=== PATIENT | male | born 1980 | race Caucasian/White ===

== ENCOUNTER 2018-05-25 08:53 | Emergency (ER) | payer OTHER ==
[2018-05-25 08:59] VITALS: BP 149/93
[2018-05-25] MEDS ORDERED: TDAP ADULT 0.5 ML INJ (BOOSTRIX) IM ONE (09:14)
[2018-05-25] MEDS ORDERED: CEPHALEXIN 500 MG CAP PO ONE (09:14)
--- NOTE | 2018-05-25 09:16 | EDPHY ---
H & P Stated Complaint: R pinky lac Time Seen by Provider: 05/25/18 09:06 HPI/ROS: CHIEF COMPLAINT: Right finger laceration HISTORY OF PRESENT ILLNESS: 38-year-old male right-hand dominant with out-of- date tetanus sustained accidental laceration to his right pinky digit palmar aspect PIP joint shortly prior to arrival when he was reaching to his backpack and accidentally lacerated himself. Unable to flex at the PIP joint. PRIMARY CARE PROVIDER: REVIEW OF SYSTEMS: 10 systems reviewed and are negative with exception of illness mentioned in the history of present illness PHYSICAL EXAM (Prior to examination, patient consented to physical exam, hands were washed and my usual and customary physical exam procedures followed) 1) GENERAL: Well-developed, well-nourished, alert and oriented. Appears to be in no acute distress. 2) HEAD: Normocephalic 3) HEENT: sclera anicteric 4) LUNGS: Breathing comfortably. 5) SKIN: Right pinky digit palmar aspect PIP joint 1 cm laceration. 6) MUSCULOSKELETAL: FDP dysfunction noted 7) NEUROLOGIC: Two-point discrimination intact. - Personal History Current Tetanus/Diphtheria Vaccine: No Current Tetanus Diphtheria and Acellular Pertussis (TDAP): No - Medical/Surgical History Hx Asthma: No Hx Chronic Respiratory Disease: No Hx Diabetes: No Hx Cardiac Disease: No Hx Renal Disease: No Hx Cirrhosis: No Hx Alcoholism: Yes Hx HIV/AIDS: No Hx Splenectomy or Spleen Trauma: No Other PMH: L ACL repair - Social History Smoking Status: Current every day smoker Constitutional: Initial Vital Signs Temperature (C) 36.6 C 05/25/18 08:57 Heart Rate 108 H 05/25/18 08:57 Respiratory Rate 16 05/25/18 08:57 Blood Pressure 149/93 H 05/25/18 08:57 O2 Sat (%) 98 05/25/18 08:57 O2 Delivery Mode Room Air Allergies/Adverse Reactions: No Known Allergies Allergy (Unverified 05/25/18 08:57) Home Medications: Medication Instructions Recorded Cephalexin [Keflex] 500 mg PO TID 7 Days cap 05/25/18 Medical Decision Making - Diagnostics Imaging Results: Imaging Impressions Finger X-Ray 05/25/18 09:14 Impression: No fracture or foreign material. Images reviewed myself Procedures: Procedure: Laceration repair. I explained the indications, risks and benefits for both laceration repair and anesthetic administration. Verbal consent was obtained from the patient. The laceration on the right 5th digit was anesthetized using 0.5% bupivicaine without epinephrine digital nerve block. After anesthetic administered the patient was observed for a period of time and had no apparent adverse effects. The wound was cleaned, prepped, draped in normal sterile fashion and explored to its base. No foreign body seen, no foreign bodies palpated. I was unable to visualize any flexor tendon however he is noted to have FDP dysfunction on exam. The skin was closed with 3 simple interrupted 5 O Ethilon sutures. The wound repair was simple. The procedure was performed by myself. Patient has been informed that scarring will occur, although efforts have been made to minimize this. ED Course/Re-evaluation: 10:17 a.m.: Phone consultation with on-call hand surgeon DEBBIE Rivero with Dr Holt regarding the patient's inability to flex. Today is . Recommended follow-up on Tuesday. Patient has been placed in Alumafoam splint in position of comfort with slight flexion. Recommend continue antibiotics. Given usual customary wound precautions instructions. Patient feels comfortable being discharged. All questions and concerns addressed by myself. Patient given my usual and customary discharge precautions and instructions regarding their clinical impression. Care of patient under supervision of secondary supervising physician Dr Alba Cartagena with whom I discussed case. Consult/Admit Bed Type: 10:17 a.m.: Hand surgery - Data Points Medications Given: Discontinued Medications Cephalexin HCl (Keflex) 500 mg PO EDNOW ONE PRN Reason: Protocol Stop: 05/25/18 09:15 Last Admin: 05/25/18 10:40 Dose: 500 mg Diphtheria/Tetanus/Acell Pertussis (Boostrix) 0.5 ml IM .ONCE ONE Stop: 05/25/18 09:15 Last Admin: 05/25/18 10:39 Dose: 0.5 ml Departure - Departure Disposition: Home, Routine, Self-Care Clinical Impression: Tendon laceration Laceration of little finger Qualifiers: Encounter type: initial encounter Damage to nail status: without damage Foreign body presence: without foreign body Laterality: right Qualified Code(s) : S61.216A - Laceration without foreign body of right little finger without damage to nail, initial encounter Condition: Good Instructions: Finger Laceration (ED), Tendon Laceration (ED) Additional Instructions: Return to the ER if you develop redness, swelling, discharge, warmth to the wound, red streaks going up your arm, or any other symptoms that concern you. Referrals: Tristan Holt MD [Medical Doctor] - 05/29/18 (Call Dr. Tristan Holt office today to set up an appointment on Tuesday. Tell the assistant front end manager that I spoke with Dr. Tristan Holt and he would like to see you on Tuesday.) Prescriptions: Cephalexin [Keflex] 500 mg PO TID 7 Days cap
== END 2018-05-25 10:54 | disposition home or self-care (01) ==
PROC: 0HQFXZZ Repair Right Hand Skin, External Approach (ICD-10-PCS; principal; 2018-05-25)
DX: S61.216A Laceration without foreign body of right little finger without damage to nail, initial encounter (principal); Z23 Encounter for immunization; W26.9XXA Contact with unspecified sharp object(s), initial encounter